=== PATIENT | male | born 1940 | race African-American/Black ===

== ENCOUNTER 2017-02-21 18:56 | Emergency (ER) | payer OTHER ==
[~2017-02-21] VITALS: Ht 180.3 cm; Wt 99.8 kg
--- NOTE | 2017-02-21 19:08 | NUR ---
PT BIB SELF C/O RIGHT FLANK PAIN X 2 DAYS. DENIES HEMATURIA/DYSURIA. GOWNED PT. AWAITING MD ORDER
--- NOTE | 2017-02-21 19:30 | NUR ---
DIRECTOR OF MARKETING OPERATIONS AT BEDSIDE FOR BLOOD DRAW
[2017-02-21] MEDS ORDERED: HYDROCODONE/APAP 5/325MG 1 EACH TABLET ONE (19:34)
--- NOTE | 2017-02-21 19:40 | NUR ---
PT TAKEN TO CT VIA WC
--- NOTE | 2017-02-21 19:55 | NUR ---
URINE SMAPLE COLLECTED SENT TO LAB
[2017-02-21 19:59] LABS: CALCIUM, SERUM 8.7 mg/dL (8.5-10.1); CARBON DIOXIDE 28 mmol/L (21-32); CHLORIDE 109 mmol/L (98-107); CREATININE 1.4 mg/dL (0.6-1.3); GLUCOSE 107 mg/dL (74-106); POTASSIUM 3.8 mmol/L (3.5-5.1); SODIUM SERUM 145 mmol/L (136-145); UREA NITROGEN, BLOOD 20 mg/dL (7-18)
[2017-02-21] MEDS ORDERED: HYDROCODONE/APAP 5/325MG 1 EACH TABLET PO ONE (20:00)
[2017-02-21 20:04] LABS: APPEARANCE,URINE CLEAR (CLEAR); BILIRUBIN,URINE NEGATIVE (NEGATIVE); BLOOD, URINE NEGATIVE Ery/uL (NEGATIVE); COLOR,URINE YELLOW (YELLOW); KETONES,URINE NEGATIVE (NEGATIVE); LEUKOCYTE ESTERASE ,URINE TRACE (NEGATIVE); NITRITE, URINE NEGATIVE (NEGATIVE); PROTEIN,URINE TRACE mg/dl (NEGATIVE); UGLUCOSE NEGATIVE (NEGATIVE); UROBILINOGEN,URINE 0.2 EU/dL (0.2)
[2017-02-21 20:10] LABS: BASOPHILS % (AUTO) 0.3 % (0.0-2.0); EOSINOPHILS # (AUTO) 0.1 /CMM (0.0-0.7); HEMATOCRIT 32 % (39-51); HEMOGLOBIN 10.6 g/dL (13.5-17.5); LYMPHOCYTES # (AUTO) 1.4 /CMM (0.8-4.8); LYMPHOCYTES % (AUTO) 21.7 % (20.0-44.0); MEAN CORPUSCULAR HEMOGLOBIN 29 PG (26.0-33.0); MEAN CORPUSCULAR HGB CONC 33 g/dl (31.0-36.0); MEAN CORPUSCULAR VOLUME 88 fL (80-96); MONOCYTES # (AUTO) 0.6 /CMM (0.1-1.30); MONOCYTES % (AUTO) 9.2 % (2.0-12.0); NEUTROPHILS # (AUTO) 4.3 /CMM (1.8-8.9); NEUTROPHILS % (AUTO) 67.8 % (43.0-81.0); PLATELET COUNT (AUTO) 215 /CMM (150-450); RDW COEFFICIENT OF VARIATION 15.5 (11.5-15.0); RED BLOOD CELL COUNT(AUTO) 3.65 MIL/uL (4.5-6.0); WHITE BLOOD COUNT (AUTO) 6.3 K/uL (4.3-11.0)
[2017-02-21 20:15] LABS: BACTERIA,URINE 1+ /HPF (None Seen); SQUAMOUS EPITHELIAL CELL,UR 0-2 /HPF (None Seen)
--- NOTE | 2017-02-21 20:21 | NUR ---
Patient discharged to home in stable condition. Written and verbal after care instructions given. Patient verbalizes understanding of instruction.
[2017-02-21 20:29] VITALS: BP 160/85
== END 2017-02-21 20:30 | disposition home or self-care (01) ==
LOC: ER 18:57
DX: R07.81 Pleurodynia (principal); E11.9 Type 2 diabetes mellitus without complications; I10 Essential (primary) hypertension; Z88.0 Allergy status to penicillin
CPT/HCPCS: 36415; 71020; 80048; 81001; 85025; 87086; 99285; A4606; 81000-TC; Z7610

== ENCOUNTER 2019-03-14 13:12 | Inpatient (IN) | payer BC, OTHER ==
[~2019-03-14] VITALS: Ht 177.8 cm; Wt 103.5 kg
--- NOTE | 2019-03-14 13:18 | NUR ---
BIBRA60 FROM HOME, PER EMT "ALTERED, R SIDED FACIAL DROOP, R SIDED WEAKNESS." GCS 12, UNKNOWN LKWT. ON ADMISSION TO ER, PT SPEECH INCOHERENT, SLIGHT R SIDE FACIAL DROOP AND WEAKNESS. SKIN INTACT, NO ACUTE DISTRESS NOTED. ABLE TO FOLLOW COMMANDS. IN GOWN AND ON MONITOR. DR FLOWER AT BEDSIDE FOR EVAL.
--- NOTE | 2019-03-14 13:18 | NUR ---
CODE STROKE ACTIVATED
--- NOTE | 2019-03-14 13:20 | NUR ---
PT TAKEN TO CT VIA [facility]
[2019-03-14] MEDS ORDERED: CT SWABBABLE VALVE TRANS SET 1 EA INFUS.SET MC ONE (13:21)
[2019-03-14] MEDS ORDERED: IOHEXOL-350 100 ML VIAL IV ONE (13:21)
[2019-03-14] MEDS ORDERED: IV NS 0.9% 250 ML IV ONE (13:21)
--- NOTE | 2019-03-14 13:21 | NUR ---
CALLED 'S TELESTROKE, SPOKE WITH ARTHUR, PRESENTED PT, AWAITING CALL BACK FROM .
[2019-03-14 13:37] LABS: BASOPHILS % (AUTO) 0.5 % (0.0-2.0); EOSINOPHILS % (AUTO) 0.4 % (0.0-6.0); HEMATOCRIT 35 % (39-51); HEMOGLOBIN 11.3 g/dL (13.5-17.5); LYMPHOCYTES # (AUTO) 1.2 /CMM (0.8-4.8); LYMPHOCYTES % (AUTO) 18.1 % (20.0-44.0); MEAN CORPUSCULAR HGB CONC 33 g/dl (31.0-36.0); MEAN CORPUSCULAR VOLUME 89 fL (80-96); MONOCYTES # (AUTO) 0.7 /CMM (0.1-1.30); MONOCYTES % (AUTO) 9.9 % (2.0-12.0); NEUTROPHILS # (AUTO) 4.8 /CMM (1.8-8.9); NEUTROPHILS % (AUTO) 71.1 % (43.0-81.0); PLATELET COUNT (AUTO) 194 /CMM (150-450); RED BLOOD CELL COUNT(AUTO) 3.87 MIL/uL (4.5-6.0); WHITE BLOOD COUNT (AUTO) 6.7 K/uL (4.3-11.0)
[2019-03-14 13:44] LABS: CALCIUM, SERUM 8.8 mg/dL (8.5-10.1); CARBON DIOXIDE 25 mmol/L (21-32); CHLORIDE 105 mmol/L (98-107); CREATININE 1.5 mg/dL (0.6-1.3); GLUCOSE 119 mg/dL (74-106); POTASSIUM 4.3 mmol/L (3.5-5.1); SODIUM SERUM 141 mmol/L (136-145); UREA NITROGEN, BLOOD 28 mg/dL (7-18)
[2019-03-14 13:49] LABS: ALANINE AMINOTRANSFERASE 26 U/L (12-78); ALBUMIN 3.9 g/dL (3.4-5.0); ALKALINE PHOSPHATASE 85 U/L (46-116); ASPARTATE AMINOTRANSFERASE 23 U/L (15-37); BILIRUBIN,DIRECT 0.1 mg/dL (0.0-0.2); BILIRUBIN,TOTAL 0.6 mg/dL (0.2-1.0); TOTAL PROTEIN, SERUM 8.3 g/dL (6.4-8.2)
--- NOTE | 2019-03-14 13:50 | NUR ---
BACK FROM CT
--- NOTE | 2019-03-14 14:00 | NUR ---
PT ABLE TO MOVE RIGHT ARM WITH INTENTION. SPEECH IS NOW CLEAR, BUT NOT MAKING ANY SENSE. WILL CONT TO MONITOR.
--- NOTE | 2019-03-14 14:57 | NUR ---
CALLED NURSING SUP. FOR TELE BED
--- NOTE | 2019-03-14 15:46 | NUR ---
TELE 320-2
--- NOTE | 2019-03-14 16:12 | NUR ---
REPORT GIVEN TO KRISTEL HANCOCK FOR 320-2 TELE, FOR DOT
[2019-03-14] MEDS ORDERED: MAG HYDROX/AL HYDROX/SIMETH 30 ML UDC PO PRN (16:30)
[2019-03-14] MEDS ORDERED: DEXTROSE 50%-WATER 50 ML DISP.SYRIN IV PRN (16:30)
[2019-03-14] MEDS ORDERED: ACETAMINOPHEN 325 MG TABLET PO PRN (16:30)
--- NOTE | 2019-03-14 16:48 | NUR ---
[facility]
[2019-03-14] MEDS: hydrALAZINE HCL IV 20 MG VIAL IV PRN (16:57)
--- NOTE | 2019-03-14 17:00 | NUR ---
RN ADMITTING NOTES RECEIVED PATIENT FROM ER VIA [facility]. DIAGNOSIS OF CEREBRAL INFARCT, ACUTE ENCEPHALOPATY. PATIENT IS AWAKE, ABLE TO SPEAK BUT UNCLEAR, INCOHERENT, AND CONFUSED. UNABLE TO GET ANY HISTORY. NOT IN ANY FORM OF DISTRESS, NO SOB. NO S/S OF PAIN OR DISCOMFORT. ABLE TO MOVE AND TRANSFER FROM [facility] TO BED WITH MULTIPLE AND REPETITIVE VERBAL COMMAND. NO FACIAL DROOP, MILD WEAKNESS ON RIGHT EXTREMITIES, RIGHT PUPIL NON REACTIVE TO LIGHT. NOSE BRIDGE DEFORMED, DEVIATED TO THE RIGHT. IV ACCESS INTACT AND PATENT. PLACED ON TELE SR 89 WITH PVCS. CLEANED THE PATIENT, PLACED GOWN ON. ORIENTED PATIENT TO THE ROOM. BODY CHECKED DONE, SCAB NOTED ON RIGHT LOWER EXTREMITIES. UNABLE TO TAKE PHOTO DUE TO PATIENT KEEPS MOVING AND UNABLE TO FOLLOW COMMAND. KEPT PATIENT SAFE AND COMFORTABLE. BED IN LOW/LOCKED POSITION, SIDERAILS UP, CALL LIGHT IN REACH. WILL CONTINUE TO MONIOTR ACCORDINGLY.
--- NOTE | 2019-03-14 17:00 | NUR ---
RN NOTES BP =188/100. ADMINISTERED HYDRALAZINE IV 20MG IV ORDERED. AWARE. WILL RECHECK BP
[2019-03-14] MEDS: HEPARIN SODIUM, PORCINE 5000 UNITS/1 ML VIAL SQ SCH (17:05)
[2019-03-14] MEDS: BLOOD SUGAR DIAGNOSTIC 1 EACH STRIP IN SCH ×2 (17:08→22:19)
[2019-03-14] MEDS ORDERED: BLOOD SUGAR DIAGNOSTIC 1 EACH STRIP IN SCH ×2 (17:30→18:00)
--- NOTE | 2019-03-14 17:30 | NUR ---
RN NOTES BELONGINGS CHECKED BY GILDA OCONNELL CNA
[2019-03-14 17:45] VITALS: BP 170/99
--- NOTE | 2019-03-14 17:45 | NUR ---
RN NOTES RECHECKED BP. BP= 170/99. AWARE
--- NOTE | 2019-03-14 18:00 | NUR ---
RN NOTES: SWALLOW EVAL SWALLOW EVAL DONE AT BEDSIDE. PATIENT ABLE TO FOLLOW MULTIPLE REPETITIVE COMMAND. ABLE TO SWALLOW APPLE SAUCE, AND ABLE TO TAKE SIPS AND DRANK THE CUP OF WATER WITHOUT CHOKING OF GURGLING. ABLE TO SWALLOW WITHOUT COMPLICATIONS. CLEVELAND BURNHAM NP MADE AWARE. PER CLEVELAND, OK TO FEED PATIENT.
--- NOTE | 2019-03-14 18:30 | NUR ---
RN NOTES: DAUGHTER INFO RECEIVED A CALL FROM DAUGHTER, ANGELA [phone]. PER DAUGHTER, PATIENT HAD MULTIPLE STROKES BEFORE AND HE'S ALWAYS INCOHERENT AFTER EACH EPISODES AND RETURNS TO NORMAL BASELINE IN A FEW DAYS. WILL NOTIFY JEWELL GUTHRIE.
--- NOTE | 2019-03-14 19:30 | NUR ---
RN CLOSING NOTES PATIENT IN STABLE CONDITION. ALL NEEDS ATTENDED AND PROVIDED. ALL DUE MEDICATIONS ADMINISTERED ORDERED. ASSISTED WITH ADLS. KEPT PATIENT SAFE AND COMFORTABLE. BED IN LOW/LOCKED POSITION, SIDERAILS UP, CALL LIGHT IN REACH. ENDORSED TO NIGHT RN FOR DOT.
[2019-03-14] MEDS: SIMVASTATIN 20 MG TABLET PO SCH (22:19)
[2019-03-14 22:24] LABS: CHOLESTEROL 212 mg/dL (<200); HDL CHOLESTEROL 75 mg/dL (40-60); LDL 117 mg/dL (0-99); TRIGLYCERIDES 74 mg/dL (30-150)
[2019-03-14] MEDS: INSULIN REGULAR, HUMAN 100 UNIT/ML 3 ML VIAL SQ PRN (22:27)
[2019-03-15 00:30] VITALS: BP 149/80
[2019-03-15 03:41] LABS: THYROID STIMULATING HORMONE 1.403 uIU/mL (0.358-3.74)
[2019-03-15 04:37] VITALS: BP 139/75
[2019-03-15] MEDS: HEPARIN SODIUM, PORCINE 5000 UNITS/1 ML VIAL SQ SCH ×2 (05:17→17:45)
[2019-03-15 06:12] LABS: BASOPHILS % (AUTO) 0.5 % (0.0-2.0); EOSINOPHILS % (AUTO) 0.5 % (0.0-6.0); HEMATOCRIT 31 % (39-51); HEMOGLOBIN 10.5 g/dL (13.5-17.5); LYMPHOCYTES # (AUTO) 1.2 /CMM (0.8-4.8); LYMPHOCYTES % (AUTO) 19.1 % (20.0-44.0); MEAN CORPUSCULAR HGB CONC 34 g/dl (31.0-36.0); MEAN CORPUSCULAR VOLUME 88 fL (80-96); MONOCYTES # (AUTO) 0.8 /CMM (0.1-1.30); MONOCYTES % (AUTO) 12.7 % (2.0-12.0); NEUTROPHILS # (AUTO) 4.1 /CMM (1.8-8.9); NEUTROPHILS % (AUTO) 67.2 % (43.0-81.0); PLATELET COUNT (AUTO) 176 /CMM (150-450); RED BLOOD CELL COUNT(AUTO) 3.57 MIL/uL (4.5-6.0); WHITE BLOOD COUNT (AUTO) 6.1 K/uL (4.3-11.0)
[2019-03-15 06:28] LABS: CREATINE KINASE, TOTAL 150 U/L (39-308)
[2019-03-15 06:31] LABS: ALANINE AMINOTRANSFERASE 21 U/L (12-78); ALBUMIN 3.2 g/dL (3.4-5.0); ALKALINE PHOSPHATASE 69 U/L (46-116); ASPARTATE AMINOTRANSFERASE 22 U/L (15-37); BILIRUBIN,TOTAL 0.8 mg/dL (0.2-1.0); CALCIUM, SERUM 8.2 mg/dL (8.5-10.1); CARBON DIOXIDE 28 mmol/L (21-32); CHLORIDE 103 mmol/L (98-107); CREATININE 1.3 mg/dL (0.6-1.3); GLUCOSE 115 mg/dL (74-106); MAGNESIUM 1.8 mg/dL (1.8-2.4); PHOSPHORUS 2.6 mg/dL (2.5-4.9); POTASSIUM 3.5 mmol/L (3.5-5.1); SODIUM SERUM 140 mmol/L (136-145); TOTAL PROTEIN, SERUM 7.1 g/dL (6.4-8.2); UREA NITROGEN, BLOOD 20 mg/dL (7-18)
--- NOTE | 2019-03-15 07:00 | NUR ---
TELERN BS WAS 116. NO COVERAGE. ENDORSED TO INCOMING RN FOR CONTINUITY OF CARE
--- NOTE | 2019-03-15 07:34 | NUR ---
TELE/RN OPENING NOTE PATIENT IN BED IN STABLE CONDITION. A/O X 2-3. NO SIGNS OF ACUTE DISTRESS. NO COMPLAIN OF PAIN OR DISCOMFORT. ON TELE MONITOR NOTED WITH SR WITH PAC RATE OF 68. ALL NEEDS ATTENDED TO AT THIS TIME. CALL LIGHT WITHIN REACH. WILL CONTINUE TO MONITOR TO ENSURE SAFETY.
[2019-03-15 08:00] VITALS: BP 134/69
[2019-03-15] MEDS: PANTOPRAZOLE 40 MG TABLET.DR PO SCH (08:22)
[2019-03-15] MEDS: DOCUSATE SODIUM 100 MG CAPSULE PO SCH (08:22)
[2019-03-15] MEDS: ASPIRIN EC 325 MG TABLET.DR PO SCH (08:22)
[2019-03-15] MEDS: BLOOD SUGAR DIAGNOSTIC 1 EACH STRIP IN SCH ×4 (08:22→23:49)
--- NOTE | 2019-03-15 10:52 | NUR ---
Social service consult requested by JEWELL Sanchez for possible placement. Pt. is a 78 year old male who was admitted to [facility] for encephalopathy and dehydration. A code stroke was called in the ED yesterday upon pt's arrival. SW met with pt. bedside. Pt. is alert and oriented x 2. Pt. appears confused and is not making any sense with his words. SW to re-evaluate pt. when he is more alert and oriented.
[2019-03-15] MEDS: IV NS 0.9% 1,000 ML IV SCH (12:10)
[2019-03-15 12:16] LABS: THYROID STIMULATING HORMONE 1.217 uIU/mL (0.358-3.74)
[2019-03-15] MEDS: NITROGLYCERIN 30 GM TUBE TP SCH ×2 (12:29→23:44)
--- NOTE | 2019-03-15 13:00 | NUR ---
MS/RN F/C INSERTED ORDERED. NOTED WITH CLEAR, KHANG URINE DRAINING. TOLERATED WELL.
[2019-03-15 16:00] VITALS: BP 137/82
[2019-03-15] MEDS: INSULIN REGULAR, HUMAN 100 UNIT/ML 3 ML VIAL SQ PRN (17:57)
--- NOTE | 2019-03-15 18:14 | NUR ---
MS/RN CLOSING NOTE PATIENT IN BED IN STABLE CONDITION. A/O X 1 WITH EPISODES OF CONFUSION AND FORGETFULNESS. NO SIGNS OF ACUTE DISTRESS. NO COMPLAIN OF PAIN OR DISCOMFORT. ALL NEEDS ATTENDED TO. CALL LIGHT WITHIN REACH. WILL ENDORSE TO NEXT SHIFT FOR CONTINUITY OF CARE.
[2019-03-15 20:48] VITALS: BP 131/81
--- NOTE | 2019-03-15 22:00 | NUR ---
MS/RN UNABLE TO COMPLETE NIHSS ASSESSMENT, PATIENT IS AWAKE, ALERT, ORIENTED, BUT NOT COOPERATIVE. PATIENT WOULD ONLY SAY HIS BIRTHDAY TO ALL OTHER QUESTIONS/TESTS.
[2019-03-15] MEDS: SIMVASTATIN 20 MG TABLET PO SCH (23:43)
[2019-03-16 01:52] LABS: APPEARANCE,URINE CLOUDY (CLEAR); BILIRUBIN,URINE NEGATIVE (NEGATIVE); BLOOD, URINE 3+ Ery/uL (NEGATIVE); COLOR,URINE OTHER (YELLOW); KETONES,URINE NEGATIVE (NEGATIVE); LEUKOCYTE ESTERASE ,URINE 3+ (NEGATIVE); NITRITE, URINE NEGATIVE (NEGATIVE); PH,URINE 6.5 (5.0-8.0); PROTEIN,URINE NEGATIVE (NEGATIVE); UGLUCOSE NEGATIVE (NEGATIVE); UROBILINOGEN,URINE 0.2 EU/dL (0.2)
[2019-03-16 02:01] LABS: BACTERIA,URINE Few /HPF (None Seen); CREATININE, URINE 23.6 MG/DL (30.0-125.0); SQUAMOUS EPITHELIAL CELL,UR Rare /HPF (None Seen); URINE TOTAL PROTEIN 24.8 mg/dL (0-11.9); WBC,URINE TOO NUMEROUS TO COUN /HPF (0-3)
[2019-03-16 02:21] LABS: EOSINOPHIL,URINE Rare
--- NOTE | 2019-03-16 03:33 | NUR ---
MS/RN PATIENT IS SLEEPING AT THIS TIME, AROUSABLE, APPEAR COMFORTABLE, NO DISTRESS NOTED, CALL LIGHT IN REACH. WILL CONTINUE TO MONITOR.
[2019-03-16] MEDS: HEPARIN SODIUM, PORCINE 5000 UNITS/1 ML VIAL SQ SCH ×2 (05:24→16:40)
--- NOTE | 2019-03-16 06:13 | NUR ---
MS/RN PATIENT IS AWAKE, COMFORTABLE, NO DISTRESS NOTED, NO CHANGE IN CONDITION, ALL NEEDS ATTENDED AT THIS TIME, WILL CONTINUE TO MONITOR.
[2019-03-16] MEDS: IV NS 0.9% 1,000 ML IV SCH (06:25)
[2019-03-16] MEDS: BLOOD SUGAR DIAGNOSTIC 1 EACH STRIP IN SCH ×4 (06:30→21:23)
--- NOTE | 2019-03-16 07:56 | NUR ---
RN OPENING NOTES PT AWAKE AND RESTING IN BED. NO COMPLAINTS OF PAIN, SOB OR DISTRESS AT THIS TIME. PT HAS VARGAS INTACT AND DRAINING WELL. PT HAS LEFT AC #20 RUNNING NS @50ML/HR. WILL FOLLOW UP WITH DAUGHTER FOR MRI CHECKLIST. SAFETY PRECAUTIONS IN PLACE, BED IN LOWEST LOCKED POSITION, X2 SIDE RAILS UP AND CALL LIGHT WITHIN REACH. WILL CONTINUE TO MONITOR.
[2019-03-16 07:58] LABS: BASOPHILS % (AUTO) 0.4 % (0.0-2.0); EOSINOPHILS % (AUTO) 1.3 % (0.0-6.0); HEMATOCRIT 32 % (39-51); HEMOGLOBIN 10.3 g/dL (13.5-17.5); LYMPHOCYTES # (AUTO) 1.3 /CMM (0.8-4.8); LYMPHOCYTES % (AUTO) 23.6 % (20.0-44.0); MEAN CORPUSCULAR HGB CONC 33 g/dl (31.0-36.0); MEAN CORPUSCULAR VOLUME 89 fL (80-96); MONOCYTES # (AUTO) 0.7 /CMM (0.1-1.30); MONOCYTES % (AUTO) 11.6 % (2.0-12.0); NEUTROPHILS # (AUTO) 3.5 /CMM (1.8-8.9); NEUTROPHILS % (AUTO) 63.1 % (43.0-81.0); PLATELET COUNT (AUTO) 169 /CMM (150-450); RED BLOOD CELL COUNT(AUTO) 3.54 MIL/uL (4.5-6.0); WHITE BLOOD COUNT (AUTO) 5.6 K/uL (4.3-11.0)
[2019-03-16 08:00] VITALS: BP 156/84
[2019-03-16 08:16] LABS: CALCIUM, SERUM 8.3 mg/dL (8.5-10.1); CARBON DIOXIDE 26 mmol/L (21-32); CHLORIDE 106 mmol/L (98-107); CREATININE 1.1 mg/dL (0.6-1.3); GLUCOSE 106 mg/dL (74-106); POTASSIUM 3.8 mmol/L (3.5-5.1); SODIUM SERUM 139 mmol/L (136-145); UREA NITROGEN, BLOOD 16 mg/dL (7-18)
[2019-03-16] MEDS: PANTOPRAZOLE 40 MG TABLET.DR PO SCH (08:30)
[2019-03-16] MEDS: DOCUSATE SODIUM 100 MG CAPSULE PO SCH (08:30)
[2019-03-16] MEDS: ASPIRIN EC 325 MG TABLET.DR PO SCH (08:30)
[2019-03-16] MEDS: NITROGLYCERIN 30 GM TUBE TP SCH ×2 (08:34→21:22)
[2019-03-16 09:06] LABS: IRON, SERUM 42 ug/dl (50-175); TOTAL IRON BINDING CAPACITY 234 ug/dl (250-450)
[2019-03-16 10:59] LABS: FERRITIN 116 ng/mL (8-388)
[2019-03-16] MEDS: CEFTRIAXONE 1 G in IV D5W 50 ML IV SCH (12:17)
[2019-03-16 14:07] LABS: PTH, INTACT 51 pg/mL (15-65)
[2019-03-16 15:07] LABS: *SPE A/G RATIO 1.2 (0.7-1.7); *SPE ALBUMIN 3.6 g/dL (2.9-4.4); *SPE ALPHA-1-GLOBULIN 0.1 g/dL (0.0-0.4); *SPE ALPHA-2-GLOBULIN 0.7 g/dL (0.4-1.0); *SPE BETA GLOBULIN 0.8 g/dL (0.7-1.3); *SPE M-SPIKE Not Observed g/dL (Not Observed); *SPEGAMMA GLOBULIN 1.4 g/dL (0.4-1.8)
[2019-03-16 16:00] VITALS: BP 122/98
[2019-03-16] MEDS ORDERED: QUETIAPINE FUMARATE 25 MG TABLET PO PRN (17:00)
--- NOTE | 2019-03-16 18:06 | NUR ---
RN CLOSING NOTES PT AWAKE AND RESTING IN BED. NO COMPLAINTS OF PAIN, SOB OR DISTRESS DURING THE SHIFT. PT HAS VARGAS INTACT AND DRAINING WELL. PT HAS LEFT AC #[address] INTACT AND PATENT. [address] CHACHA RIOS TO ADVANCE DIET. SAFETY PRECAUTIONS IN PLACE, BED IN LOWEST LOCKED POSITION, X2 SIDE RAILS UP AND CALL LIGHT WITHIN REACH. WILL ENDORSE TO DATA ANALYTICS ARCHITECT NURSE FOR CONTINUITY OF CARE.
--- NOTE | 2019-03-16 19:30 | NUR ---
MS RN NOTES RECEIVED ON BED,ON HIGH FOWLERS POSITION,BREATHING REGULAR,NOT IN ANY FORM OF DISTRESS.WITH STRONG CUTTING MACHINE TENDER ON BOTH UPPER ARMS.SALINE LOCK LEFT AC INTACT AND PATENT.VARGAS CATH IN PLACE DRAINING YELLOWISH OUTPUT.DENIES DISCOMFORTS AT THE MOMENT.FALL PRECAUTION OBSERVED.CALL LIGHT IN REACH,NEEDS ANTICIPATED.
[2019-03-16 20:00] VITALS: BP 152/89
[2019-03-16 21:20] VITALS: BP 152/89
--- NOTE | 2019-03-16 21:22 | NUR ---
MS RN NOTES STARTED ON SEROQUEL 12.5MG PO ORDERED.
--- NOTE | 2019-03-16 21:22 | NUR ---
MS RN NOTES BP 152/89,DUE NITRO PATCH 1GM APPLIED TO LEFT UPPER CHEST ORDERED.
[2019-03-16] MEDS: SIMVASTATIN 20 MG TABLET PO SCH (21:31)
--- NOTE | 2019-03-16 21:36 | NUR ---
MS RN NOTES ACCU-CHECK BLOOD SUGAR CHECK 125,NO INSULIN COVERAGE
[2019-03-16] MEDS ORDERED: QUETIAPINE FUMARATE 25 MG TABLET PO SCH (22:00)
--- NOTE | 2019-03-17 01:00 | NUR ---
MS RN NOTES SLEEPING,KEPT WARM AND COMFORTABLE.
--- NOTE | 2019-03-17 05:00 | NUR ---
MS RN NOTES DUE HEPARIN 5000 UNITS ADMINISTERED ON RIGHT UPPER ABDOMEN SCHEDULED.
[2019-03-17] MEDS: HEPARIN SODIUM, PORCINE 5000 UNITS/1 ML VIAL SQ SCH (05:04)
[2019-03-17] MEDS: BLOOD SUGAR DIAGNOSTIC 1 EACH STRIP IN SCH ×2 (05:29→12:04)
--- NOTE | 2019-03-17 05:30 | NUR ---
MS RN NOTES ACCU-CHECK BLOOD SUGAR CHECK 102,NO INSULIN COVERAGE.
--- NOTE | 2019-03-17 06:22 | NUR ---
MS RN NOTES PATIENT VERBALIZED HE WANTS TO GO HOME TODAY NO MATTER WHAT.VARGAS DRAINS WELL,EMPTIED 1400ML OF URINE.DENIES PAIN DISCOMFORTS.CALL LIGHT IN REACH,NEEDS ATTENDED.WILL ENDORSE TO TUTU HUMPHRIES FOR DOT.
--- NOTE | 2019-03-17 07:38 | NUR ---
M/S RN NOTES PATIENT AWAKE IN BED, ALERT AND ORIENTED X3, NO RESPIRATORY DISTRESS NOTED, NO C/O PAIN AT THIS TIME. SKIN WARM TO TOUCH, IV ACCESS SITE INTACT AND PATENT, NO REDNESS AND NO INFILTRATION NOTED. PATIENT'S NEEDS ATTENDED, BED ON LOWEST LOCKED POSITION. WILL CONTINUE TO MONITOR.
[2019-03-17 08:00] VITALS: BP 183/102
[2019-03-17] MEDS: DOCUSATE SODIUM 100 MG CAPSULE PO SCH (08:04)
[2019-03-17] MEDS: NITROGLYCERIN 30 GM TUBE TP SCH (08:04)
[2019-03-17] MEDS: PANTOPRAZOLE 40 MG TABLET.DR PO SCH (08:04)
[2019-03-17] MEDS: ASPIRIN EC 325 MG TABLET.DR PO SCH (08:04)
[2019-03-17 08:05] VITALS: BP 183/102
[2019-03-17] MEDS: hydrALAZINE HCL IV 20 MG VIAL IV PRN (08:05)
[2019-03-17 08:18] LABS: BASOPHILS % (AUTO) 0.5 % (0.0-2.0); EOSINOPHILS % (AUTO) 1.2 % (0.0-6.0); HEMATOCRIT 34 % (39-51); HEMOGLOBIN 11.1 g/dL (13.5-17.5); LYMPHOCYTES # (AUTO) 1.3 /CMM (0.8-4.8); LYMPHOCYTES % (AUTO) 22.9 % (20.0-44.0); MEAN CORPUSCULAR HGB CONC 33 g/dl (31.0-36.0); MEAN CORPUSCULAR VOLUME 89 fL (80-96); MONOCYTES # (AUTO) 0.8 /CMM (0.1-1.30); MONOCYTES % (AUTO) 13.1 % (2.0-12.0); NEUTROPHILS # (AUTO) 3.7 /CMM (1.8-8.9); NEUTROPHILS % (AUTO) 62.3 % (43.0-81.0); PLATELET COUNT (AUTO) 183 /CMM (150-450); RED BLOOD CELL COUNT(AUTO) 3.78 MIL/uL (4.5-6.0); WHITE BLOOD COUNT (AUTO) 5.9 K/uL (4.3-11.0)
[2019-03-17 11:12] LABS: ALANINE AMINOTRANSFERASE 22 U/L (12-78); ALBUMIN 3.2 g/dL (3.4-5.0); ALKALINE PHOSPHATASE 71 U/L (46-116); ASPARTATE AMINOTRANSFERASE 16 U/L (15-37); BILIRUBIN,TOTAL 0.5 mg/dL (0.2-1.0); CALCIUM, SERUM 8.9 mg/dL (8.5-10.1); CARBON DIOXIDE 26 mmol/L (21-32); CHLORIDE 104 mmol/L (98-107); CREATININE 1.2 mg/dL (0.6-1.3); GLUCOSE 141 mg/dL (74-106); MAGNESIUM 2.1 mg/dL (1.8-2.4); PHOSPHORUS 2.5 mg/dL (2.5-4.9); POTASSIUM 3.6 mmol/L (3.5-5.1); SODIUM SERUM 138 mmol/L (136-145); TOTAL PROTEIN, SERUM 7.6 g/dL (6.4-8.2); UREA NITROGEN, BLOOD 16 mg/dL (7-18)
[2019-03-17] MEDS: CEFTRIAXONE 1 G in IV D5W 50 ML IV SCH (12:06)
[2019-03-17] MEDS: INSULIN REGULAR, HUMAN 100 UNIT/ML 3 ML VIAL SQ PRN (12:11)
--- NOTE | 2019-03-17 15:20 | NUR ---
M/S STRUCTURAL STEEL ENGINEER NOTES PATIENT DISCHARGED HOME IN STABLE CONDITION, NO RESPIRATORY DISTRESS, NO C/O PAIN. PATIENT'S VARGAS CATHETER REMOVED PER MD ORDER PRIOR TO DISCHARGE, SKIN WARM TO TOUCH, NO SKIN BREAKDOWN, PHOTOS REFUSED TO BE TAKEN PER PATIENT REUEST. IV REMOVED AND APPLIED PRESSURE DRESSING. PATIENT GIVEN DISCHARGE INSTRUCTIONS, VERBALIZED UNDERSTANDING, PRESCRIPTION GIVEN TO PATIENT. BELONGINGS ACCOUNTED FOR AND SIGNED. PATIENT ESCORTED TO LOBBY AND LEFT VIA TAXI.
--- NOTE | 2019-03-18 08:11 | NUR ---
ECHO REPORT IS DONE AWAITING FOR REPORT TO CROSS OVER TO [facility].
== END 2019-03-17 15:28 | disposition home or self-care (01) | DRG 64 ==
LOC: ER 13:12 → TELE 16:09 → MED 03-15 10:20
PROVIDERS: ADMIT Nurse Practitioner Acute Care; ATTEND Nurse Practitioner Acute Care
DX: I63.9 Cerebral infarction, unspecified (principal); N17.0 Acute kidney failure with tubular necrosis; G93.41 Metabolic encephalopathy; I69.351 Hemiplegia and hemiparesis following cerebral infarction affecting right dominant side; N17.9 Acute kidney failure, unspecified; N39.0 Urinary tract infection, site not specified; E86.0 Dehydration; I12.9 Hypertensive chronic kidney disease with stage 1 through stage 4 chronic kidney disease, or unspecified chronic kidney disease; N18.9 Chronic kidney disease, unspecified; D63.8 Anemia in other chronic diseases classified elsewhere; R29.705 NIHSS score 5; I16.0 Hypertensive urgency; Z88.0 Allergy status to penicillin; I69.320 Aphasia following cerebral infarction; E66.9 Obesity, unspecified; Z68.32 Body mass index [BMI] 32.0-32.9, adult; S80.211A Abrasion, right knee, initial encounter; X58.XXXA Exposure to other specified factors, initial encounter; Y92.9 Unspecified place or not applicable; D64.9 Anemia, unspecified; E78.5 Hyperlipidemia, unspecified; B96.89 Other specified bacterial agents as the cause of diseases classified elsewhere; R33.9 Retention of urine, unspecified; R73.9 Hyperglycemia, unspecified; F29 Unspecified psychosis not due to a substance or known physiological condition; M19.90 Unspecified osteoarthritis, unspecified site; F03.90 Unspecified dementia, unspecified severity, without behavioral disturbance, psychotic disturbance, mood disturbance, and anxiety
CPT/HCPCS: 36415; 70450-TC; 70496-TC; 70498-TC; 70551-TC; 71045-TC; 73564-TC; 76770-TC; 80048-TC; 80053-TC; 80061-TC; 80076-TC; 80305; 81000-TC; 82550-TC; 82570-TC; 82728-TC; 82962-TC; 83540-TC; 83735-TC; 83880; 83970; 84100-TC; 84155; 84155-TC; 84165; 84300-TC; 84439-TC; 84443-TC; 84484-TC; 85025-TC; 85652-TC; 85730-TC; 86850-TC; 87081-TC; 87086-TC; 87186-TC; 92526; 92611-TC; 93307-TC; 97110-TC; 97116-TC; 97530-TC; G0378; G0480; J0360; J0696; J1644; J1815; J7030; J7050; J7060; Q9967

== ENCOUNTER 2019-08-22 22:38 | Inpatient (IN) | payer BC ==
[~2019-08-22] VITALS: Ht 180.3 cm; Wt 100.9 kg
--- NOTE | 2019-08-22 22:49 | NUR ---
PT BIB RA WITH A C/O SLIP AND FALL AT HOME. WHEN RESCUE ARRIVED, PT WAS AGGITATED AND BECAME COMBATIVE. [employer] WAS CALLED AND ON SCENE. PT REC'D 5MG OF VERSED IM IN THE FIELD.
[2019-08-22] MEDS ORDERED: LIDOCAINE 2% JEL UROJET 10 ML MM ONE ×2 (22:57→23:00)
--- NOTE | 2019-08-22 23:20 | NUR ---
JOSEPH MODI PLACED ON MEDIUM.
[2019-08-22 23:21] LABS: BASOPHILS # (AUTO) 0.1 /CMM (0.0-0.2); BASOPHILS % (AUTO) 1.1 % (0.0-2.0); EOSINOPHILS % (AUTO) 1.5 % (0.0-6.0); HEMATOCRIT 26 % (39-51); HEMOGLOBIN 8.4 g/dL (13.5-17.5); LYMPHOCYTES # (AUTO) 1.5 /CMM (0.8-4.8); LYMPHOCYTES % (AUTO) 31.5 % (20.0-44.0); MEAN CORPUSCULAR HGB CONC 32 g/dl (31.0-36.0); MEAN CORPUSCULAR VOLUME 90 fL (80-96); MONOCYTES # (AUTO) 0.7 /CMM (0.1-1.30); MONOCYTES % (AUTO) 14.8 % (2.0-12.0); NEUTROPHILS # (AUTO) 2.4 /CMM (1.8-8.9); NEUTROPHILS % (AUTO) 51.1 % (43.0-81.0); PLATELET COUNT (AUTO) 221 /CMM (150-450); RED BLOOD CELL COUNT(AUTO) 2.89 MIL/uL (4.5-6.0); WHITE BLOOD COUNT (AUTO) 4.7 K/uL (4.3-11.0)
--- NOTE | 2019-08-22 23:28 | NUR ---
PT'S O2 SAT DECREASED TO 90% ON RA. PT WAS PLACED ON 2L O2 VIA NC AND IS NOW 96%. DR UMANA IS AWARE.
[2019-08-22 23:29] LABS: CALCIUM, SERUM 8.7 mg/dL (8.5-10.1); CARBON DIOXIDE 26 mmol/L (21-32); CHLORIDE 101 mmol/L (98-107); CREATININE 1.6 mg/dL (0.6-1.3); GLUCOSE 111 mg/dL (74-106); POTASSIUM 3.7 mmol/L (3.5-5.1); SODIUM SERUM 138 mmol/L (136-145); UREA NITROGEN, BLOOD 45 mg/dL (7-18)
[2019-08-22 23:35] LABS: ALANINE AMINOTRANSFERASE 29 U/L (12-78); ALBUMIN 3.4 g/dL (3.4-5.0); ALCOHOL, BLOOD 198 mg/dL (0-0); ALKALINE PHOSPHATASE 64 U/L (46-116); ASPARTATE AMINOTRANSFERASE 25 U/L (15-37); BILIRUBIN,DIRECT 0.1 mg/dL (0.0-0.2); BILIRUBIN,TOTAL 0.1 mg/dL (0.2-1.0); TOTAL PROTEIN, SERUM 7.5 g/dL (6.4-8.2)
[2019-08-22 23:35] LABS: APPEARANCE,URINE Clear (CLEAR); BILIRUBIN,URINE Negative (NEGATIVE); BLOOD, URINE Negative Ery/uL (NEGATIVE); COLOR,URINE Yellow (YELLOW); KETONES,URINE Negative (NEGATIVE); LEUKOCYTE ESTERASE ,URINE Negative (NEGATIVE); NITRITE, URINE Negative (NEGATIVE); PROTEIN,URINE Negative (NEGATIVE); UGLUCOSE Negative (NEGATIVE); UROBILINOGEN,URINE 0.2 EU/dL (0.2)
[2019-08-22 23:36] LABS: ACETAMINOPHEN 0 ug/ml (10-30); SALICYLATE 1.4 mg/dL (2.8-20.0)
--- NOTE | 2019-08-22 23:40 | NUR ---
[place]
[2019-08-22 23:42] LABS: SERUM AMMONIA 3 umol/L (11-32)
--- NOTE | 2019-08-22 23:42 | NUR ---
Brenda orellana in ED - 08/22/19 at 2342 by [email or web address] PT IS GOING TO CT VIA [facility].
[2019-08-22] MEDS ORDERED: HALOPERIDOL LACTATE INJ 5 MG/ML VIAL ONE (23:43)
--- NOTE | 2019-08-22 23:45 | NUR ---
TELE 328-
--- NOTE | 2019-08-22 23:47 | NUR ---
PT BECAME COMBATIVE WHEN HE WAS LEAVING FOR CT. NEW ORDERS GIVEN.
--- NOTE | 2019-08-22 23:50 | NUR ---
PT LEFT FOR CT.
[2019-08-22 23:53] LABS: THYROID STIMULATING HORMONE 1.013 uIU/mL (0.358-3.74)
--- NOTE | 2019-08-22 23:55 | NUR ---
PT RETURNED FROM CT. PT WAS NOT LYING STILL IN CT. DR UMANA NOTIFIED.
[2019-08-23] MEDS ORDERED: HALOPERIDOL LACTATE INJ 5 MG/ML VIAL IM ONE
--- NOTE | 2019-08-23 00:05 | NUR ---
DR UMANA IS AT THE BEDSIDE SPEAKING TO THE PT. THE PT STATED THAT HE WOULD LIE STILL IN CT. RADIOLOGY WAS CALLED.
--- NOTE | 2019-08-23 00:06 | NUR ---
PT IS LEAVING FOR CT [facility]IA [facility]. KJ LERNER IS WITH THE PT.
--- NOTE | 2019-08-23 00:20 | NUR ---
PT RETURNED FROM CT.
--- NOTE | 2019-08-23 00:23 | NUR ---
PT IS GOING TO 326-1.
--- NOTE | 2019-08-23 00:45 | NUR ---
RN OPEN NOTES RECEIVED PATIENT FROM ER VIA [facility]. A/O X2. NO SIGNS OF DISTRESS OR DISCOMFORT. BREATHING EVEN AND UNLABORED. ON 2LPM O2 VIA NC. IV ACCESS IN R WRIST, PATENT AND INTACT, NO SIGNS OF REDNESS OR INFILTRATION. ATTACHED TO TELE MONITOR WITH SR 68 NOTED. ORIENTED TO UNIT AND ROOM. NO SKIN ISSUES NOTED. BED IN LOW LOCKED POSITION WITH SIDE RAILS X2. BED ALARM ON. CALL LIGHT WITHIN REACH. WILL CONTINUE TO MONITOR.
--- NOTE | 2019-08-23 07:00 | NUR ---
MS/RN Received patient in bed, AOx2, able to response all stimuli. Pt. does no c/o pain or any discomfort. Respiratory even and unlabored, skin is warm and dry to touch. Call light within reach, will continue to monitor.
[2019-08-23 08:00] VITALS: BP 117/63
[2019-08-23 08:14] VITALS: BP 117/63
[2019-08-23] MEDS ORDERED: HYDROCODONE/APAP 5/325MG 1 EACH TABLET PO PRN (08:30)
[2019-08-23] MEDS ORDERED: Z GUARD REMEDY 2 OZ OINT TP PRN (08:30)
[2019-08-23] MEDS ORDERED: ACETAMINOPHEN 325 MG TABLET PO PRN (08:30)
[2019-08-23] MEDS ORDERED: MAGNESIUM HYDROXIDE 30 ML UDC PO PRN (08:30)
[2019-08-23] MEDS ORDERED: MAG HYDROX/AL HYDROX/SIMETH 30 ML UDC PO PRN (08:30)
[2019-08-23] MEDS ORDERED: ONDANSETRON HCL/PF 4 MG/2 ML VIAL IVP PRN (08:30)
[2019-08-23] MEDS ORDERED: IRON ASPGLY&PS/C/B12/FA/CA/SUC 1 CAP CAPSULE PO SCH (10:00)
[2019-08-23] MEDS ORDERED: SIMV-46 PO (10:13)
[2019-08-23] MEDS ORDERED: CLOP75TA15 PO (10:13)
[2019-08-23] MEDS ORDERED: LEVE500T20 PO (10:13)
[2019-08-23] MEDS: IV NS 0.9% 1,000 ML IV PRN ×2 (10:54→22:31)
[2019-08-23] MEDS: FOLIC ACID 1 MG TABLET PO SCH (10:54)
[2019-08-23] MEDS: THIAMINE HCL 100 MG TABLET PO SCH (10:54)
[2019-08-23] MEDS ORDERED: K PHOS NEUTRAL 250 MG TABLET PO ONE (11:30)
[2019-08-23] MEDS: CHLORDIAZEPOXIDE HCL 10 MG CAPSULE PO SCH ×3 (12:03→21:16)
[2019-08-23 13:14] VITALS: BP 126/71
[2019-08-23 16:52] VITALS: BP 107/60
--- NOTE | 2019-08-23 19:10 | NUR ---
URBAN RENEWAL MANAGER NOTE RECEIVED PT IN STABLE CONDITION A/O 2-3, CURRENTLY IN BED RESTING. NO SIGNS OF SOB OR DISTRESS, NO C/O PAIN OR N/V. TELE MONITOR: NSR. IV IN R WRIST #20 WITH IVF INFUSING. ALL CURRENT NEEDS ATTENDED TO. BED LOW, LOCKED, UPPER RAILS UP, AND CALL LIGHT WITHIN REACH. WILL CONT. TO MONITOR.
--- NOTE | 2019-08-23 19:57 | NUR ---
RN CLOSING NOTES PATIENT IN STABLE CONDITION. ALL NEEDS ATTENDED AND PROVIDED. ALL DUE MEDICATIONS GIVEN ORDERED. KEPT PATIENT SAFE AND COMFORTABLE. BED IN LOW/LOCKED POSITION, SIDERAILS UP X 2, BED ALARM ON. CALL LIGHT IN REACH. ENDORSED TO NIGHT RN FOR DOT.
[2019-08-23 20:22] VITALS: BP 139/72
--- NOTE | 2019-08-24 06:17 | NUR ---
MS RN NOTE PT REMAINS IN STABLE CONDITION A/O X3, CURRENTLY IN BED RESTING. NO SIGNS OF SOB OR DISTRESS, NO C/O PAIN OR N/V. IV IN R WRIST #20 WITH IVF INFUSING. ALL CURRENT NEEDS ATTENDED TO. BED LOW, LOCKED, UPPER RAILS UP, AND CALL LIGHT WITHIN REACH. WILL CONT. TO MONITOR AND ENDORSE TO NEXT SHIFT FOR DOT.
[2019-08-24 07:30] LABS: BILIRUBIN,TOTAL 0.2 mg/dL (0.2-1.0); CALCIUM, SERUM 8.3 mg/dL (8.5-10.1); CREATININE 1.2 mg/dL (0.6-1.3); MAGNESIUM 2.2 mg/dL (1.8-2.4); PHOSPHORUS 3.2 mg/dL (2.5-4.9); POTASSIUM 4.1 mmol/L (3.5-5.1); TOTAL PROTEIN, SERUM 6.9 g/dL (6.4-8.2)
[2019-08-24 07:32] LABS: BASOPHILS % (AUTO) 0.8 % (0.0-2.0); EOSINOPHILS % (AUTO) 1.7 % (0.0-6.0); HEMATOCRIT 25 % (39-51); HEMOGLOBIN 8.1 g/dL (13.5-17.5); LYMPHOCYTES # (AUTO) 1.2 /CMM (0.8-4.8); LYMPHOCYTES % (AUTO) 22.5 % (20.0-44.0); MEAN CORPUSCULAR HGB CONC 33 g/dl (31.0-36.0); MEAN CORPUSCULAR VOLUME 89 fL (80-96); MONOCYTES # (AUTO) 0.9 /CMM (0.1-1.30); MONOCYTES % (AUTO) 16.7 % (2.0-12.0); NEUTROPHILS % (AUTO) 58.3 % (43.0-81.0); PLATELET COUNT (AUTO) 224 /CMM (150-450); RED BLOOD CELL COUNT(AUTO) 2.77 MIL/uL (4.5-6.0); WHITE BLOOD COUNT (AUTO) 5.2 K/uL (4.3-11.0)
--- NOTE | 2019-08-24 07:39 | NUR ---
MS/RN Opening note Patient received resting in bed, A/O x2-3, showing no signs of acute distress or SOB, saturating >95% on RA. IV line in the left wrist #20 is running NS @75ml/hr. Bed is in lowest position, side rails x2 in upright position, call light is within reach and patient is aware of how to call for assistance when needed. Fall and safety precautions enforced. Will continue with plan of care.
[2019-08-24 07:47] VITALS: BP 113/68
[2019-08-24 08:00] VITALS: BP 113/68
[2019-08-24] MEDS: CHLORDIAZEPOXIDE HCL 10 MG CAPSULE PO SCH (08:25)
[2019-08-24] MEDS: THIAMINE HCL 100 MG TABLET PO SCH (08:25)
[2019-08-24] MEDS: FOLIC ACID 1 MG TABLET PO SCH (08:25)
--- NOTE | 2019-08-24 09:30 | NUR ---
MS/corrosion control fitter note Patient is medically stable for discharge. A/O x3, Patient is in no acute distress, no SOB noted, saturating >95% on RA. Vital Signs WNL. DC instructions provided, patient verbalized understanding. IV line removed. ID band removed. All belonging with patient and belongings list signed. Skin is intact. Patient kept clean and dry and comfortable throughout shift. Needs and concerns addressed. MD aware of discharge. Patient left the unit by wheelchair accompanied by TRACK SURFACING MACHINE OPERATOR. DC to home via taxi cab.
[2019-08-24 09:37] LABS: LYMPHOCYTES % (MANUAL) 18 % (16-48); MONOCYTES % (MANUAL) 13 % (0-11.0); NEUTROPHILS % (MANUAL) 69 (42-76)
[2019-08-25 12:06] LABS: *SPE A/G RATIO 0.9 (0.7-1.7); *SPE ALBUMIN 3.1 g/dL (2.9-4.4); *SPE ALPHA-1-GLOBULIN 0.2 g/dL (0.0-0.4); *SPE ALPHA-2-GLOBULIN 0.7 g/dL (0.4-1.0); *SPE GLOBULIN, TOTAL 3.3 g/dL (2.2-3.9); *SPE M-SPIKE Not Observed g/dL (Not Observed); *SPEGAMMA GLOBULIN 1.4 g/dL (0.4-1.8)
[2019-08-25 13:16] LABS: PTH, INTACT 33 pg/mL (15-65)
== END 2019-08-24 09:37 | disposition home or self-care (01) | DRG 896 ==
LOC: ER 22:39 → TELE 23:48 → MED 08-23 20:46
PROVIDERS: ADMIT Internal Medicine; ATTEND Internal Medicine
DX: F10.129 Alcohol abuse with intoxication, unspecified (principal); N17.0 Acute kidney failure with tubular necrosis; G92 Toxic encephalopathy; I69.351 Hemiplegia and hemiparesis following cerebral infarction affecting right dominant side; Y90.6 Blood alcohol level of 120-199 mg/100 ml; W18.30XA Fall on same level, unspecified, initial encounter; Y92.89 Other specified places as the place of occurrence of the external cause; E78.5 Hyperlipidemia, unspecified; E86.0 Dehydration; D63.1 Anemia in chronic kidney disease; I12.9 Hypertensive chronic kidney disease with stage 1 through stage 4 chronic kidney disease, or unspecified chronic kidney disease; E11.22 Type 2 diabetes mellitus with diabetic chronic kidney disease; N18.9 Chronic kidney disease, unspecified; Z88.0 Allergy status to penicillin
CPT/HCPCS: 36415; 70450-TC; 71045-TC; 72125-TC; 76770-TC; 80048-TC; 80053-TC; 80076-TC; 80305; 81000-TC; 82140-TC; 82550-TC; 83735-TC; 83970; 84100-TC; 84155; 84165; 84443-TC; 84484-TC; 85025-TC; 85730-TC; 87081-TC; 87086-TC; G0378; G0480; J1630; J3490; J7030; L0172

== ENCOUNTER 2025-01-01 13:24 | Emergency (ER) | payer BC ==
[~2025-01-01] VITALS: Ht 175.3 cm; Wt 99.8 kg
[~2025-01-01 13:24] MED LIST: CLOP75TA15 PO; LEVE500T20 PO; SIMV-46 PO
[2025-01-01] MEDS ORDERED: KETO10TA2 PO (15:24)
[2025-01-01] MEDS ORDERED: CYCL5TAB PO (15:24)
[2025-01-01 17:45] VITALS: BP 155/85; TEMP 98; O2SAT 97
== END 2025-01-01 17:45 | disposition home or self-care (01) ==
LOC: ER 13:36
DX: M25.511 Pain in right shoulder (principal); I10 Essential (primary) hypertension; E11.9 Type 2 diabetes mellitus without complications; Z79.02 Long term (current) use of antithrombotics/antiplatelets; Z88.0 Allergy status to penicillin; Z79.899 Other long term (current) drug therapy
CPT/HCPCS: 73030-TC